=== PATIENT | male | born 1985 | race African-American/Black ===

== ENCOUNTER 2017-06-30 13:35 | Emergency (ER) | payer OTHER ==
[~2017-06-30] VITALS: Ht 188 cm; Wt 90.0 kg
[2017-06-30 19:30] VITALS: BP 125/65
== END 2017-06-30 20:34 | disposition home or self-care (01) ==
LOC: ER 17:35
DX: S20.211A Contusion of right front wall of thorax, initial encounter (principal); F17.200 Nicotine dependence, unspecified, uncomplicated; Z88.8 Allergy status to other drugs, medicaments and biological substances; Y08.89XA Assault by other specified means, initial encounter; Y93.89 Activity, other specified; Y92.89 Other specified places as the place of occurrence of the external cause; Y99.8 Other external cause status
CPT/HCPCS: 71111; 99284

== ENCOUNTER 2017-07-08 14:07 | Emergency (ER) | payer OTHER ==
[~2017-07-08] VITALS: Ht 188 cm; Wt 92.0 kg
[2017-07-08 15:05] VITALS: BP 130/68
== END 2017-07-08 15:40 | disposition left against medical advice (07) ==
LOC: ER 14:07
DX: R07.81 Pleurodynia (principal); Z87.891 Personal history of nicotine dependence; Z88.8 Allergy status to other drugs, medicaments and biological substances
CPT/HCPCS: 99281

== ENCOUNTER 2018-11-28 11:22 | Emergency (ER) | payer OTHER ==
[~2018-11-28] VITALS: Ht 188 cm; Wt 96.0 kg
[2018-11-28] MEDS ORDERED: IBUPROFEN 800MG TABLET PO ONE (13:00)
[2018-11-28 13:50] VITALS: BP 123/68
== END 2018-11-28 13:53 | disposition home or self-care (01) ==
LOC: ER 11:22
DX: S20.212A Contusion of left front wall of thorax, initial encounter (principal); V49.59XA Passenger injured in collision with other motor vehicles in traffic accident, initial encounter; Y93.89 Activity, other specified; Y92.89 Other specified places as the place of occurrence of the external cause; Y99.8 Other external cause status
CPT/HCPCS: 71101; 99283

== ENCOUNTER 2021-05-01 14:08 | Emergency (ER) | payer OTHER ==
[~2021-05-01] VITALS: Ht 188 cm; Wt 86.0 kg
[2021-05-01] MEDS ORDERED: KETOROLAC 60MG/2ML VIAL IM ONE (14:45)
[2021-05-01] MEDS ORDERED: BUPIVACAINE HCL/PF 0.5% (5MG/ML) 10ML INFIL ONE (14:45)
[2021-05-01] MEDS ORDERED: AMOX-424 MT (14:48)
[2021-05-01 15:03] VITALS: BP 125/78
== END 2021-05-01 15:20 | disposition home or self-care (01) ==
LOC: ER 14:08
DX: K04.7 Periapical abscess without sinus (principal)
CPT/HCPCS: 41800; 96372; 99283; J1885; J3490; 10060

== ENCOUNTER 2022-03-03 12:29 | Emergency (ER) | payer OTHER ==
[~2022-03-03] VITALS: Ht 188 cm; Wt 92.0 kg
[~2022-03-03 12:29] MED LIST: AMOX-424 MT
[2022-03-03 12:41] VITALS: BP 131/76
[2022-03-03] MEDS ORDERED: LIDOCAINE HCL/EPINEPHRINE 1%-EPI 1:100,000 20 ML VIAL INFIL ONE (13:00)
[2022-03-03] MEDS ORDERED: BACITRACIN ZINC OINT UDPKT TOP ONE (13:00)
[2022-03-03] MEDS ORDERED: TETANUS, DIPHTHERIA, PERTUSSIS VAC/PF 0.5ML (>10YR OLD) IM ONE (13:00)
== END 2022-03-03 14:41 | disposition home or self-care (01) ==
LOC: ER 12:29
DX: S01.111A Laceration without foreign body of right eyelid and periocular area, initial encounter (principal); W22.8XXA Striking against or struck by other objects, initial encounter; Y93.89 Activity, other specified; Y92.018 Other place in single-family (private) house as the place of occurrence of the external cause
CPT/HCPCS: 12013; 99282; J3490

== ENCOUNTER 2022-03-10 12:22 | Emergency (ER) | payer OTHER ==
[~2022-03-10] VITALS: Ht 188 cm; Wt 93.0 kg
[2022-03-10 12:33] VITALS: BP 137/72
== END 2022-03-10 13:10 | disposition home or self-care (01) ==
LOC: ER 12:22
DX: S01.111D Laceration without foreign body of right eyelid and periocular area, subsequent encounter (principal); X58.XXXD Exposure to other specified factors, subsequent encounter
CPT/HCPCS: 99281; Z7610

== ENCOUNTER 2023-12-22 13:17 | Emergency (ER) | payer MEDICAID, OTHER ==
[~2023-12-22] VITALS: Ht 188 cm; Wt 93.0 kg
[2023-12-22 13:22] VITALS: O2SAT 99
[2023-12-22] MEDS ORDERED: LIDOCAINE HCL/EPINEPHRINE 1%-EPI 1:100,000 50 ML VIAL INFIL ONE (14:30)
[2023-12-22] MEDS ORDERED: LIDOCAINE HCL/EPINEPHRINE 1%-EPI 1:100,000 20 ML VIAL INFIL NR (15:15)
[2023-12-22] MEDS ORDERED: AMOX1TAB16 MT (16:40)
[2023-12-22 17:09] VITALS: BP 136/74; PULSE 71; RESP 18; TEMP 98.9
== END 2023-12-22 17:10 | disposition home or self-care (01) ==
LOC: ER 13:17
DX: K12.2 Cellulitis and abscess of mouth (principal)
CPT/HCPCS: 10060; 99283; J3490; Z7610 ×3

== ENCOUNTER 2024-10-10 15:53 | Emergency (ER) | payer MEDICAID ==
[~2024-10-10] VITALS: Ht 188 cm; Wt 52.0 kg
[~2024-10-10 15:53] MED LIST changes: +AMOX1TAB16 MT
[2024-10-10 16:05] VITALS: O2SAT 99
[2024-10-10 17:09] LABS: BASOPHILS % 0.6 % (0.0-2.0); EOSINOPHILS % 1.7 % (0.0-5.0); HEMATOCRIT. 41.1 % (42.0-52.0); HEMOGLOBIN. 13.7 g/dL (14.0-18.0); LYMPHOCYTES % 26.9 % (20.0-50.0); MEAN CORPUSCULAR HEMOGLOBIN 32.3 pg (28.0-32.0); MEAN CORPUSCULAR HGB CONC 33.4 g/dL (31.0-37.0); MEAN CORPUSCULAR VOLUME 96.7 fL (80.0-94.0); MEAN PLATELET VOLUME 7.6 fl (7.4-10.4); MONOCYTES % 8.8 % (2.0-8.0); PLATELET 269 x1000/uL (130-400); RED BLOOD CELL COUNT 4.25 mill/uL (4.7-6.1); RED CELL DISTRIBUTION WIDTH 12.7 % (11.6-14.6)
[2024-10-10 17:13] LABS: CHLORIDE 107 mEq/L (98-107); POTASSIUM 4.4 mEq/L (3.5-5.1); SODIUM 140 mEq/L (136-145)
[2024-10-10 17:14] LABS: CALCIUM 9.3 mg/dL (8.7-10.4); CARBON DIOXIDE 28 mEq/L (21-32)
[2024-10-10 17:19] LABS: GLUCOSE 83 mg/dL (70-105)
[2024-10-10 17:24] LABS: UREA NITROGEN BLOOD < 5 mg/dL (9-23)
[2024-10-10] MEDS ORDERED: IBUP-2029 MT (18:17)
[2024-10-10] MEDS ORDERED: ALBU18HF2 IH (18:17)
[2024-10-10 18:34] VITALS: BP 125/68; PULSE 84; RESP 16; TEMP 36.66960; O2SAT 99
== END 2024-10-10 18:34 | disposition home or self-care (01) ==
LOC: ER 15:53
DX: J20.9 Acute bronchitis, unspecified (principal); F12.90 Cannabis use, unspecified, uncomplicated
CPT/HCPCS: 36415; 71045; 80048; 85025; 93005; 99285